=== PATIENT | male | born 1950 | race Caucasian/White ===

== ENCOUNTER 2017-11-19 05:46 | Day surgery (SDC) | payer MEDICARE, OTHER ==
[~2017-11-19] VITALS: Ht 160 cm; Wt 67.6 kg
[~2017-11-19 05:46] MED LIST: ADVAIR 250/28 DISKU1 IH; ATARAX 10MG10 MG/TAB PO; CRESTOR20 MG PO; FLONASEALLERGY NS; HYDROXYZINE HCL25 MG PO; NEXIUM 40MG40 MG PEG; NEXIUM 40MG40 MG PO; PROVENTIL0.09 MG/A1 IH; SINGULAIR 110 MG/TAB PO; ZOCOR 20MG20 MG PO; ZOCOR20 MG PO; ZYRTEC 10MG10 MG PO
[2017-11-19] MEDS ORDERED: ZANTAC 150MG T150 MG PO (06:25)
[2017-11-19] MEDS ORDERED: SYNTHROID0.075 MG/T PO (06:25)
[2017-11-19 06:46] VITALS: BP 140/70; PULSE 61; TEMP 97
[2017-11-19 07:40] VITALS: BP 154/83; PULSE 68; TEMP 97.8
[2017-11-19 08:00] VITALS: BP 125/79; PULSE 61
[2017-11-19 08:15] VITALS: BP 127/59; PULSE 49
[2017-11-19 08:30] VITALS: BP 121/70; PULSE 52
== END 2017-11-19 08:50 | disposition home or self-care (01) ==
LOC: SDCO 05:46
DX: D12.5 Benign neoplasm of sigmoid colon (principal); K57.30 Diverticulosis of large intestine without perforation or abscess without bleeding; K64.1 Second degree hemorrhoids; K59.00 Constipation, unspecified; K92.1 Melena; K21.9 Gastro-esophageal reflux disease without esophagitis; E78.00 Pure hypercholesterolemia, unspecified; J45.909 Unspecified asthma, uncomplicated; F41.9 Anxiety disorder, unspecified; Z88.0 Allergy status to penicillin; Z88.6 Allergy status to analgesic agent
CPT/HCPCS: J2250; J3010; J7030